=== PATIENT | female | born 1945 | race Caucasian/White ===

== ENCOUNTER 2017-02-27 11:31 | Emergency (ER) | payer MEDICARE ==
[~2017-02-27] VITALS: Ht 157.5 cm; Wt 72.6 kg
[~2017-02-27 11:31] MED LIST: DOES NOT KNOW MEDS
--- NOTE | 2017-02-27 12:58 | Diagnostic Imaging Report ---
PROCEDURE: X-RAY CHEST, TWO VIEWS COMPARISON: Report of a single chest x-ray performed 03/10/13. INDICATIONS: GENERALIZED WEAKNESS, CONFUSION FINDINGS: LUNGS: No mass or infiltrate. Pulmonary vascular markings are normal. PLEURA: No effusions or pneumothorax. HEART \T\ MEDIASTINUM: Mildly enlarged with calcification of aortic arch. No hilar lymphadenopathy. BONES \T\ SOFT TISSUES: Degenerative changes of the spine consistent with age. No focal osseous lesions. Surgical clips in the left breast are present with diminished left breast shadow suggestive of partial mastectomy. Several clips the left axilla are suggestive of lymph node dissection. CONCLUSION: No acute cardiopulmonary process. Dictated by: Celena Beck M.D. on 02/27/2017 at 13:06 Electronically approved by: Celena Beck M.D. on 02/27/2017 at 13:06
--- NOTE | 2017-02-27 13:51 | Diagnostic Imaging Report ---
EXAMINATION: Head CT HISTORY: Weakness, dementia COMPARISON: Accident on 02/28/2013 TECHNIQUE: Multidetector axial images were obtained without contrast from the foramen magnum to the vertex . The images were reconstructed using brain and bone algorithms. Thin section brain images were reformatted into coronal and sagittal planes. Intravenous contrast: None. Motion/streaking artifact limits the evaluation of the skull base and posterior cranial fossa. FINDINGS: Parenchyma: 1. And change myocardium at rest ischemic changes and tiny chronic lacunar infarct in the anterior limb of the left internal capsule. 2. No mass or hemorrhage. No CT evidence of acute territorial vascular insult. Extra-axial spaces:No abnormal density. No extra-axial fluid collections Brain volume: Normal for age. Ventricles: No hydrocephalus or displacement. Arteries: No density suggestive of thrombus. Dural sinuses: No abnormal density. Extra-axial spaces: No abnormal density. Foramen magnum: No mass, Chiari malformation, or basilar invagination. Sella: No obvious residual/recurrent mass. Paranasal/mastoid sinuses: Imaged portions unremarkable. Hyperpneumatization, sclerosis and opacification of the left greater than right mastoid air cells, likely from chronic inflammatory process, unchanged from prior study. Skull/Scalp: Left pterional craniotomy IMPRESSION: 1. No acute intracranial hemorrhage or cortical infarct. 2. Stable mild chronic microvascular changes. 3. Left pterional craniotomy, no discrete residual suprasellar lesion in this unenhanced study. Signed by: Dr. Alisha Woodard M.D. on 02/27/2017 1:47 PM
== END 2017-02-27 14:21 | disposition left against medical advice (07) ==
LOC: ER 11:31
DX: R41.82 Altered mental status, unspecified (principal); R41.0 Disorientation, unspecified
CPT/HCPCS: 70450; 71020

== ENCOUNTER 2017-02-28 18:28 | Emergency (ER) | payer MEDICARE | END 2017-02-28 21:13 | disposition short-term general hospital (02) | LOC: ER 18:28 | DX: R69 Illness, unspecified (principal) ==

== ENCOUNTER 2017-08-18 11:58 | Observation (INO) | payer MEDICARE ==
[~2017-08-18] VITALS: Ht 162.6 cm; Wt 75.5 kg
[2017-08-18] MEDS ORDERED: SODIUM CHLORIDE 0.9% 1000ML 1,000 ML IV STA (12:13)
[2017-08-18] MEDS ORDERED: ONDANSETRON HCL INJ 2 MG/ML VIAL IV STA ×2 (12:21→13:46)
[2017-08-18 13:07] LABS: BASOPHILS # (AUTO) 0.1 (0.0-0.1); BASOPHILS % 0.9 % (0.0-1.0); EOSINOPHILS # (AUTO) 0.1 (0.0-0.4); EOSINOPHILS % 0.8 % (0.0-6.0); HEMATOCRIT 42.4 % (34.2-44.1); HEMOGLOBIN 14.5 g/dL (12.0-16.0); LYMPHOCYTES # (AUTO) 1.3 (1.0-3.2); LYMPHOCYTES % 15.9 % (18.0-39.1); MEAN CORPUSCULAR HEMOGLOBIN 31.3 pg (28-32); MEAN CORPUSCULAR HGB CONC 34.2 g/dL (31-35); MEAN CORPUSCULAR VOLUME 91.4 fL (81-99); MONOCYTES # (AUTO) 0.5 (0.2-0.8); MONOCYTES % 6.4 % (4.4-11.3); NEUTROPHILS % 75.4 % (38.7-80.0); PLATELET COUNT 250 x10e3/uL (140-360); RED BLOOD COUNT 4.64 x10e6/uL (3.6-5.1); RED CELL DISTRIBUTION WIDTH 12.4 % (11.7-14.4)
[2017-08-18 13:19] LABS: ALANINE AMINOTRANSFERASE 12 IU/L (0-55); ALBUMIN 3.9 g/dL (3.5-5.0); ALBUMIN/GLOBULIN RATIO 1.2 (0.8-2.0); ALKALINE PHOSPHATASE 70 IU/L (40-150); AMYLASE 56 U/L (25-125); ANION GAP 16.5 mmol/L (8-16); BLOOD UREA NITROGEN 16 mg/dL (7-26); BUN/CREATININE RATIO 20 (6-25); CALCIUM 9.3 mg/dL (8.4-10.2); CARBON DIOXIDE 21 mmol/L (22-29); CHLORIDE 104 mmol/L (98-107); CREATINE KINASE 50 IU/L (29-168); CREATININE, SERUM 0.81 mg/dL (0.57-1.11); EST GLOMERULAR FILTRATION RATE > 60 ML/MIN (60-); GLUCOSE 209 mg/dL (74-118); LIPASE 32 U/L (8-78); MAGNESIUM 1.5 MG/DL (1.3-2.1); POTASSIUM 3.5 mmol/L (3.5-5.1); SODIUM 138 mmol/L (136-145)
[2017-08-18] MEDS ORDERED: SODIUM CHLORIDE 0.9% 50ML 50 ML ONE (14:40)
[2017-08-18] MEDS ORDERED: IOPAMIDOL 370 MG/ML 200 ML INFUS..BTL INJ ONE (14:41)
--- NOTE | 2017-08-18 15:02 | Diagnostic Imaging Report ---
History: Headache, history of Brain CA, Nausea and vomiting Comparison studies:Head CT on 02/27/2017 Technique: Axial images were obtained from the skull base to the vertex. Coronal and sagittal images reconstructed from the axial data. Intravenous contrast: None Findings: Scalp/skull: Left pterional craniotomy chronic postsurgical changes. Extra-axial spaces: No masses or fluid collections Brain sulci: Mildly prominent. Ventricles: Mild compensatory dilatation. No hydrocephalus. Parenchyma: Subtle hypodensities in the supratentorial white matter are small vessel ischemic changes. No masses, hemorrhage, acute or chronic cortical vascular insults. Sellar/suprasellar region: No abnormalities. Craniocervical junction: Patent foramen magnum. No Chiari one malformation. Incidental findings: Atherosclerotic calcifications in the carotid siphons . Impression: No acute intracranial abnormalities. No changes when compared to the head CT's on 07/10 and 03/10/2013. Persistent findings: Old left pterional craniotomy. No gross intra or suprasellar abnormalities. Mild generalized volume loss. Mild supratentorial white matter vessel ischemic changes. Signed by: Dr. Naresh Schumacher M.D. on 08/18/2017 3:16 PM
--- NOTE | 2017-08-18 15:12 | Diagnostic Imaging Report ---
PROCEDURE: CT ABDOMEN AND PELVIS WITH CONTRAST TECHNIQUE: The abdomen and pelvis were scanned utilizing a multidetector helical scanner from the diaphragm to the lesser trochanter after the IV administration of 100 cc of Isovue 370 and the oral administration of water. Coronal and sagittal multiplanar reformations were obtained. COMPARISON: None. INDICATIONS: NAUSEA, VOMITING FINDINGS: LOWER THORAX: Bilateral lower lobe atelectatic changes. Mild atherosclerotic disease of the aorta. HEPATOBILIARY: Mild diffuse hepatic steatosis. No focal lesions. Mild prominence of the central intrahepatic bile ducts and mild dilation of the common bile duct, which measures 9 mm at the jesenia hepatis and 5 mm at the pancreatic head. No radiopaque intraluminal filling defects. Gallbladder is moderately distended without stones or sludge, wall thickening, or pericholecystic fluid. SPLEEN: No splenomegaly. PANCREAS: No focal masses or ductal dilatation. 1.0 cm area of fluid containing structure between the distal second portion of the duodenum and the pancreatic head (series 2 image 30), consistent with a duodenal diverticulum. ADRENALS: No adrenal nodules. KIDNEYS/URETERS: No hydronephrosis, stones, or solid mass lesions. PELVIC ORGANS/BLADDER: Bladder is unremarkable. Moderate to large amount of fluid in the endometrial cavity and endocervical canal, with thinning of the myometrium. A 2.5 x 1.7 x 1.6 cm solid appearing filling defect is noted in the endometrial cavity at the fundus (series 2, image 70, and sagittal image 73). No adnexal masses. PERITONEUM / RETROPERITONEUM: No free air or fluid. LYMPH NODES: No lymphadenopathy. VESSELS: Celiac trunk, superior and inferior mesenteric, and bilateral renal arteries are patent. Portal, superior mesenteric, and splenic veins are patent. Atherosclerotic plaque at the origin of the SMA, without significant luminal reduction. Focal narrowing and hooked appearance of the proximal celiac trunk (sagittal image 71), with mild poststenotic dilation. GI TRACT: No bowel dilation or evidence of obstruction. No pericolonic inflammatory changes. Stomach is unremarkable. BONES AND SOFT TISSUES: No aggressive lytic lesions. Generalized osteopenia. Multilevel degenerative disc changes in the lumbosacral spine, worse At L5-S1 and L3-L4. Slightly mottled appearance of the vertebral bodies, particularly lower thoracic, without discrete focal lesions. Soft tissues are grossly unremarkable. IMPRESSION: 1. No acute abdominopelvic abnormalities. Essentially unremarkable appearance of the bowel. 2. Moderate to large amount of fluid in the endometrial cavity and endocervical canal. A 2.5 cm solid appearing filling defect is noted in the endometrial cavity at the fundus. This may represent a large polyp versus submucosal fibroid. Focal endometrial neoplasm is also a consideration. 3. Mild diffuse hepatic steatosis. No focal lesions. 4. Mild prominence of the central intrahepatic bile duct and mild dilation of the common bile duct. No radiopaque intraluminal filling defects. No CT evidence of cholelithiasis or cholecystitis. 5. Findings in the celiac trunk highly suggestive of median arcuate ligament compression. 6. Slightly mottled appearance of the vertebral bodies, particularly the lower thoracic spine may be secondary to generalized osteopenia. A bone scan may be obtained for further evaluation, if clinically indicated. David Bowie M.D. Dictated by: David Bowie M.D. on 08/18/2017 at 15:15 Electronically approved by: David Bowie M.D. on 08/18/2017 at 15:15
[2017-08-18 16:05] LABS: BILIRUBIN,URINE NEGATIVE (NEGATIVE); CLARITY,URINE SL CLOUDY (CLEAR); COLOR,URINE YELLOW (YELLOW); KETONES,URINE 1+ (NEGATIVE); LEUKOCYTE ESTERASE ,URINE TRACE (NEGATIVE); NITRITE,URINE NEGATIVE (NEGATIVE); PROTEIN,URINE DIPSTICK NEGATIVE (NEGATIVE); URINE UROBILINOGEN 0.2 mg/dL (0.2 - 1)
[2017-08-18] MEDS: SODIUM CHLORIDE 0.9% 1000ML 1,000 ML IV SCH ×2 (16:11→20:54)
[2017-08-18 16:14] LABS: BACTERIA,URINE MODERATE /HPF; EPITHELIAL CELLS,URINE FEW /LPF; MUCUS,URINE MODERATE (RARE); TRANSITIONAL EPI CELLS,URINE FEW
[2017-08-18] MEDS ORDERED: ONDANSETRON HCL INJ 2 MG/ML VIAL IV PRN (16:15)
[2017-08-18] MEDS ORDERED: DEXTROSE 50% SYRINGE 50 ML IV PRN (16:15)
[2017-08-18] MEDS: INSULIN REGULAR, HUMAN 100 UNIT/1 ML 3ML VIAL SQ SCH ×2 (16:55→20:54)
[2017-08-18 20:00] VITALS: BP 164/87
[2017-08-19] VITALS (7 sets, daily range): BP systolic 102–183; BP diastolic 60–84
[2017-08-19 06:36] LABS: BASOPHILS # (AUTO) 0.1 (0.0-0.1); BASOPHILS % 0.7 % (0.0-1.0); EOSINOPHILS # (AUTO) 0.1 (0.0-0.4); EOSINOPHILS % 1.7 % (0.0-6.0); HEMATOCRIT 41.1 % (34.2-44.1); HEMOGLOBIN 13.9 g/dL (12.0-16.0); LYMPHOCYTES # (AUTO) 1.5 (1.0-3.2); LYMPHOCYTES % 21.2 % (18.0-39.1); MEAN CORPUSCULAR HGB CONC 33.8 g/dL (31-35); MEAN CORPUSCULAR VOLUME 91.7 fL (81-99); MONOCYTES # (AUTO) 0.6 (0.2-0.8); NEUTROPHILS # (AUTO) 4.8 (2.1-6.9); PLATELET COUNT 244 x10e3/uL (140-360); RED BLOOD COUNT 4.48 x10e6/uL (3.6-5.1); RED CELL DISTRIBUTION WIDTH 12.4 % (11.7-14.4)
[2017-08-19 07:01] LABS: ALANINE AMINOTRANSFERASE 11 IU/L (0-55); ALBUMIN 3.6 g/dL (3.5-5.0); ALBUMIN/GLOBULIN RATIO 1.2 (0.8-2.0); ALKALINE PHOSPHATASE 62 IU/L (40-150); AMYLASE 53 U/L (25-125); ANION GAP 12.8 mmol/L (8-16); BILIRUBIN,DIRECT 0.5 mg/dL (0.0-0.5); BLOOD UREA NITROGEN 9 mg/dL (7-26); BUN/CREATININE RATIO 13 (6-25); CALCIUM 9.1 mg/dL (8.4-10.2); CARBON DIOXIDE 25 mmol/L (22-29); CHLORIDE 107 mmol/L (98-107); CREATININE, SERUM 0.72 mg/dL (0.57-1.11); EST GLOMERULAR FILTRATION RATE > 60 ML/MIN (60-); GLUCOSE 128 mg/dL (74-118); LIPASE 31 U/L (8-78); POTASSIUM 3.8 mmol/L (3.5-5.1); SODIUM 141 mmol/L (136-145)
[2017-08-19] MEDS: INSULIN REGULAR, HUMAN 100 UNIT/1 ML 3ML VIAL SQ SCH ×4 (07:30→21:00)
[2017-08-19] MEDS ORDERED: PROMETHAZINE 12.5MG/ NACL 0.9% 12.5 MG/50 ML BAG IV PRN (08:15)
[2017-08-19 08:51] LABS: CHOL/HDL RATIO 4.8 (3.0-3.6)
[2017-08-19] MEDS: CEFTRIAXONE SOD 1 GM VIAL IV SCH (09:00)
[2017-08-19] MEDS: LABETALOL HCL 100 MG TAB PO SCH (09:00)
[2017-08-19] MEDS ORDERED: LORAZEPAM INJ 2 MG/ML VIAL IV PRN ×2 (12:00→20:30)
[2017-08-19] MEDS ORDERED: LORAZEPAM INJ 2 MG/ML VIAL IV ONE (13:00)
--- NOTE | 2017-08-19 13:43 | History and Physical ---
PRIMARY CARE PHYSICIAN: Dr. Malcolm. CHIEF COMPLAINT: Intractable nausea and vomiting. HISTORY OF PRESENT ILLNESS: This is a 72-year-old woman with history of breast cancer, status post resection, and a brain lesion, unclear as to whether it was benign or active. Now, the patient over the past 2 weeks has been having abdominal discomfort, not clear of the exact location, but she has been having intermittent vomiting. Now yesterday with intractable nausea and vomiting, 8 episodes over a 2-hour period. Therefore, she came to the hospital. The patient has some cognitive deficits. All history has been obtained from her at bedside. No fever, chills, sweats. No other symptoms. Here she was found to have hyperbilirubinemia, urinary tract infection, and abnormal findings on CT scan images. She is admitted for further evaluation and management. PAST MEDICAL HISTORY 1. Brain tumor, benign, status post resection. 2. Left breast cancer, status post radiation therapy. 3. Cognitive deficits. 4. Hypertension. 5. Diabetes mellitus. PAST SURGICAL HISTORY 1. Left breast biopsy/lumpectomy. 2. Left craniotomy. ALLERGIES: PER ELECTRONIC MEDICAL RECORD. FAMILY/SOCIAL HISTORY: The patient is . She has 3 children. No alcohol, illicits or cigarettes. Lives with her . MEDICATIONS: Per electronic medical record. REVIEW OF SYSTEMS: Unreliable. PHYSICAL EXAMINATION VITAL SIGNS: Have been reviewed. GENERAL: A tired-appearing woman resting in bed. HEENT: Anicteric. No oral lesions. CARDIOVASCULAR: Normal S1 and S2. LUNGS: Moderate breath sounds. ABDOMEN: Nontender at this time. Nondistended. EXTREMITIES: No edema or calf tenderness. NEUROLOGIC: Alert, awake, but cognitive deficits, cognitive slowing. SKIN: Dry. PSYCHIATRIC: Flat affect. LABS: Reviewed. MEDICATIONS: Reviewed. ASSESSMENT: This is a 72-year-old woman. 1. Acute gastroenteritis. 2. Intractable nausea and vomiting. 3. Metabolic acidosis. 4. Overweight state. 5. Urinary tract infection. 6. Diabetes mellitus with hyperglycemia. 7. Hyperbilirubinemia. 8. Urinary tract infection. 9. A 2.5-cm, solid-appearing, filling defect in the endometrial cavity at the fundus. 10. Mottled appearance of the vertebral bodies. PLAN 1. Continue antibiotics for urinary tract infection. Follow up cultures. 2. Treat with antiemetic with Phenergan. 3. Use Pepcid. 4. Obtain hemoglobin A1c and lipid panel. 5. Sliding-scale insulin. 6. Obtain bone scan to further evaluate vertebral body mottled appearance. 7. GI consultation. 8. Obtain hepatitis panel. 9. Rehydrate the patient. 10. Use Lovenox and Pepcid. 11. Follow up closely and monitor. Physical therapy consultation. Job#: [id number]
[2017-08-19] MEDS: ENOXAPARIN SOD INJ 40 MG/0.4 ML SYR SC SCH (16:41)
[2017-08-19] MEDS: FAMOTIDINE 20 MG TAB PO SCH (16:41)
[2017-08-19] MEDS ORDERED: ACETAMINOPHEN 325 MG TAB PO PRN (20:30)
[2017-08-19] MEDS ORDERED: HYDRALAZINE HCL 20 MG/ML VIAL IV PRN (20:30)
--- NOTE | 2017-08-19 22:32 | Diagnostic Imaging Report ---
Bone Scan, delayed phase INDICATION: 72 F with dementia. Report of mottled appearing vertebral bodies. History of breast cancer. COMPARISON: None available. Do not know source of report referenced above. REPORT: Approximately 5 hours following intravenous administration of 25 mCi of Tc-99m MDP, delayed total body images in the anterior and posterior projections and selected spot images were obtained. Excessive patient motion decreases quality of study but does not render it uninterpretable. Increased tracer at the right proximal tibial metaphysis consistent with degenerative and/or traumatic change. Otherwise, distribution of tracer activity is unremarkable throughout the skeletal system. No abnormal accumulation of tracer is seen in the soft tissues or urinary tract. IMPRESSION: No scan evidence of metastatic or metabolic bone disease. The appearance of the spine is unremarkable. Signed by: Dr. Gail Marion M.D. on 08/19/2017 10:29 PM
[2017-08-20] MEDS: SODIUM CHLORIDE 0.9% 1000ML 1,000 ML IV SCH (00:59)
[2017-08-20 04:43] LABS: BASOPHILS # (AUTO) 0.1 (0.0-0.1); BASOPHILS % 0.8 % (0.0-1.0); EOSINOPHILS # (AUTO) 0.1 (0.0-0.4); EOSINOPHILS % 1.7 % (0.0-6.0); HEMATOCRIT 40.5 % (34.2-44.1); HEMOGLOBIN 13.5 g/dL (12.0-16.0); LYMPHOCYTES # (AUTO) 1.8 (1.0-3.2); LYMPHOCYTES % 27.5 % (18.0-39.1); MEAN CORPUSCULAR HGB CONC 33.3 g/dL (31-35); MEAN CORPUSCULAR VOLUME 92.9 fL (81-99); MONOCYTES # (AUTO) 0.5 (0.2-0.8); MONOCYTES % 7.6 % (4.4-11.3); NEUTROPHILS % 62.1 % (38.7-80.0); PLATELET COUNT 226 x10e3/uL (140-360); RED BLOOD COUNT 4.36 x10e6/uL (3.6-5.1); RED CELL DISTRIBUTION WIDTH 12.3 % (11.7-14.4)
[2017-08-20 05:10] LABS: ANION GAP 12.9 mmol/L (8-16); BLOOD UREA NITROGEN 10 mg/dL (7-26); BUN/CREATININE RATIO 14 (6-25); CALCIUM 8.9 mg/dL (8.4-10.2); CARBON DIOXIDE 24 mmol/L (22-29); CHLORIDE 111 mmol/L (98-107); CREATININE, SERUM 0.69 mg/dL (0.57-1.11); EST GLOMERULAR FILTRATION RATE > 60 ML/MIN (60-); GLUCOSE 105 mg/dL (74-118); MAGNESIUM 1.8 MG/DL (1.3-2.1); POTASSIUM 3.9 mmol/L (3.5-5.1); SODIUM 144 mmol/L (136-145)
[2017-08-20 05:25] VITALS: BP 174/82
[2017-08-20 05:32] LABS: THYROID STIMULATING HORMONE 0.715 uIU/mL (0.350-4.940)
[2017-08-20] MEDS: LABETALOL HCL 100 MG TAB PO SCH ×3 (06:15→21:38)
[2017-08-20 07:25] VITALS: BP 128/60
[2017-08-20] MEDS: INSULIN REGULAR, HUMAN 100 UNIT/1 ML 3ML VIAL SQ SCH ×4 (07:30→21:00)
[2017-08-20] MEDS: FAMOTIDINE 20 MG TAB PO SCH ×2 (07:30→16:42)
[2017-08-20] MEDS: CEFTRIAXONE SOD 1 GM VIAL IV SCH (08:25)
[2017-08-20 11:16] VITALS: BP 155/78
[2017-08-20 15:16] VITALS: BP 144/88
[2017-08-20] MEDS: ENOXAPARIN SOD INJ 40 MG/0.4 ML SYR SC SCH (16:42)
[2017-08-20 20:30] VITALS: BP 142/76
[2017-08-20 21:24] VITALS: BP 142/76
[2017-08-21 04:20] VITALS: BP 148/77
[2017-08-21 06:24] LABS: BASOPHILS # (AUTO) 0.1 (0.0-0.1); BASOPHILS % 1.1 % (0.0-1.0); EOSINOPHILS # (AUTO) 0.2 (0.0-0.4); EOSINOPHILS % 2.9 % (0.0-6.0); HEMOGLOBIN 12.5 g/dL (12.0-16.0); LYMPHOCYTES # (AUTO) 2.2 (1.0-3.2); LYMPHOCYTES % 35.4 % (18.0-39.1); MEAN CORPUSCULAR HEMOGLOBIN 31.3 pg (28-32); MEAN CORPUSCULAR HGB CONC 33.8 g/dL (31-35); MEAN CORPUSCULAR VOLUME 92.5 fL (81-99); MONOCYTES # (AUTO) 0.6 (0.2-0.8); MONOCYTES % 9.4 % (4.4-11.3); NEUTROPHILS # (AUTO) 3.2 (2.1-6.9); NEUTROPHILS % 50.9 % (38.7-80.0); PLATELET COUNT 232 x10e3/uL (140-360); RED CELL DISTRIBUTION WIDTH 12.5 % (11.7-14.4)
[2017-08-21 06:41] LABS: ANION GAP 10.4 mmol/L (8-16); BLOOD UREA NITROGEN 8 mg/dL (7-26); BUN/CREATININE RATIO 12 (6-25); CALCIUM 8.9 mg/dL (8.4-10.2); CARBON DIOXIDE 25 mmol/L (22-29); CHLORIDE 109 mmol/L (98-107); CREATININE, SERUM 0.66 mg/dL (0.57-1.11); EST GLOMERULAR FILTRATION RATE > 60 ML/MIN (60-); GLUCOSE 112 mg/dL (74-118); MAGNESIUM 1.9 MG/DL (1.3-2.1); POTASSIUM 3.4 mmol/L (3.5-5.1); SODIUM 141 mmol/L (136-145)
[2017-08-21] MEDS: INSULIN REGULAR, HUMAN 100 UNIT/1 ML 3ML VIAL SQ SCH ×2 (07:30→11:30)
[2017-08-21] MEDS ORDERED: POTASSIUM CHLORIDE 20 MEQ TAB CR PO STA (07:59)
[2017-08-21 08:00] VITALS: BP 177/87
[2017-08-21] MEDS ORDERED: LABETALOL HCL100 MG PO (08:06)
[2017-08-21] MEDS ORDERED: CEFTIN PO (08:06)
[2017-08-21] MEDS: FAMOTIDINE 20 MG TAB PO SCH (08:21)
[2017-08-21] MEDS: LABETALOL HCL 100 MG TAB PO SCH (08:22)
[2017-08-21] MEDS: CEFTRIAXONE SOD 1 GM VIAL IV SCH (08:22)
[2017-08-21 09:45] VITALS: BP 177/87
[2017-08-21] MEDS ORDERED: LISINOPRIL10 MG PO ×2 (10:01→12:31)
[2017-08-21] MEDS ORDERED: EXELON1 EAC1 TOP ×2 (10:01→12:30)
[2017-08-21] MEDS ORDERED: JANUMET 50-1,01 EACH PO ×2 (10:01→12:31)
--- NOTE | 2017-08-22 19:10 | Discharge Summary ---
ADMITTING DIAGNOSES 1. Acute gastroenteritis. 2. Intractable nausea and vomiting. 3. Metabolic acidosis. 4. Overweight. 5. Urinary tract infection. 6. Type-2 diabetes. 7. Hyperbilirubinemia. 8. A 2.5-cm, solid-appearing filling defect of the endometrial cavity at the fundus. 9. Mottled appearance of the vertebral bodies. DISCHARGE DIAGNOSES 1. Acute gastroenteritis. 2. Intractable nausea and vomiting. 3. Metabolic acidosis. 4. Overweight. 5. Urinary tract infection. 6. Type-2 diabetes. 7. Hyperbilirubinemia. 8. A 2.5-cm, solid-appearing filling defect of the endometrial cavity at the fundus. 9. Mottled appearance of the vertebral bodies. 10. Ruled out metabolic bone disease and metastatic bone disease. HISTORY: The patient has a history of benign brain tumor status post resection, left breast cancer status post radiation, hypertension, diabetes. Surgical history of left breast biopsy/lumpectomy and left craniotomy. HOSPITAL COURSE: This 72-year-old female has been having abdominal pain over the last 2 weeks but is unable to clarify exactly where the pain is. She also has intermittent vomiting according to the family. HPI is limited due to cognitive deficits. at bedside. Upon admission, the patient had a CT of the brain that showed no acute abnormalities. The patient had a CT of the abdomen that showed no acute abdominal or pelvic abnormalities. Moderate to large amount of fluid in the endometrial cavity. A 2.5-cm solid-appearing filling defect is noted in the endometrial cavity at the fundus. Mild diffuse hepatic steatosis. Dilation of the common bile duct. No evidence of cholelithiasis or cholecystitis. Slightly mottled appearance of the vertebral bodies, particularly lower thoracic spine. Due to the CT scan findings, the patient had a bone scan, which showed no evidence of metastatic or metabolic bone disease. The appearance of the spine is unremarkable. Upon admission, the patient no longer had any nausea, vomiting, or diarrhea in 2 days in the hospital. The urine culture also came back contaminated. The patient was receiving IV Rocephin in the hospital with no white count and no fever. She will be discharged with Ceftin 500 mg p.o. b.i.d. x5 days. Case management consulted for home physical therapy and memory care placement. at bedside. Both the patient and agree with discharge plan. Will follow up with primary care in 1 to 2 weeks. Dictated by: Vaishnavi Cortez, CAROLYNN SYBIL COTTON MD Job#: [id number]
== END 2017-08-21 12:55 | disposition home or self-care (01) ==
LOC: ER 11:58 → ERHOLD 16:29 → IMCU 18:18
PROVIDERS: ADMIT Internal Medicine; ATTEND Internal Medicine
DX: K52.9 Noninfective gastroenteritis and colitis, unspecified (principal); R11.2 Nausea with vomiting, unspecified; E87.2 Acidosis; E66.3 Overweight; N39.0 Urinary tract infection, site not specified; E11.65 Type 2 diabetes mellitus with hyperglycemia; R10.13 Epigastric pain; E80.6 Other disorders of bilirubin metabolism; F03.90 Unspecified dementia, unspecified severity, without behavioral disturbance, psychotic disturbance, mood disturbance, and anxiety; E11.9 Type 2 diabetes mellitus without complications; I10 Essential (primary) hypertension; N85.8 Other specified noninflammatory disorders of uterus; Z68.29 Body mass index [BMI] 29.0-29.9, adult
CPT/HCPCS: 36415; 70450; 74177; 78306; 80048; 80053; 80061; 80076; 81001; 82150; 82550; 82553; 82948; 83036; 83690; 83735; 84439; 84443; 84484; 85025; 87086; 99284; A9503; G0378; J0696; J1650; J2060; J2405; J7030; Q9967

== ENCOUNTER 2017-11-14 21:00 | Emergency (ER) | payer MEDICARE ==
[~2017-11-14] VITALS: Ht 162.6 cm; Wt 75.3 kg
[~2017-11-14 21:00] MED LIST changes: +CEFTIN PO; +EXELON1 EAC1 TOP; +JANUMET 50-1,01 EACH PO; +LABETALOL HCL100 MG PO; +LISINOPRIL10 MG PO
[2017-11-14] MEDS ORDERED: LISINOPRIL20 MG PO (21:15)
[2017-11-14 21:33] LABS: BASOPHILS # (AUTO) 0.1 (0.0-0.1); BASOPHILS % 0.9 % (0.0-1.0); EOSINOPHILS # (AUTO) 0.1 (0.0-0.4); HEMATOCRIT 44.9 % (34.2-44.1); HEMOGLOBIN 14.6 g/dL (12.0-16.0); LYMPHOCYTES # (AUTO) 2.3 (1.0-3.2); LYMPHOCYTES % 21.8 % (18.0-39.1); MEAN CORPUSCULAR HEMOGLOBIN 30.7 pg (28-32); MEAN CORPUSCULAR HGB CONC 32.5 g/dL (31-35); MEAN CORPUSCULAR VOLUME 94.3 fL (81-99); MONOCYTES # (AUTO) 0.7 (0.2-0.8); MONOCYTES % 7.1 % (4.4-11.3); NEUTROPHILS # (AUTO) 7.2 (2.1-6.9); NEUTROPHILS % 68.6 % (38.7-80.0); PLATELET COUNT 289 x10e3/uL (140-360); RED BLOOD COUNT 4.76 x10e6/uL (3.6-5.1); RED CELL DISTRIBUTION WIDTH 12.2 % (11.7-14.4)
[2017-11-14 21:43] LABS: CLARITY,URINE HAZY (CLEAR); COLOR,URINE RED (YELLOW)
[2017-11-14 21:44] LABS: LEUKOCYTE ESTERASE ,URINE TRACE (NEGATIVE); NITRITE,URINE POSITIVE (NEGATIVE)
[2017-11-14 21:45] LABS: KETONES,URINE TRACE (NEGATIVE); PROTEIN,URINE DIPSTICK 3+ (NEGATIVE)
[2017-11-14 21:46] LABS: BILIRUBIN,URINE NEGATIVE (NEGATIVE); URINE UROBILINOGEN 1 mg/dL (0.2 - 1)
[2017-11-14 21:58] LABS: ALBUMIN/GLOBULIN RATIO 1.3 (0.8-2.0); ANION GAP 15.7 mmol/L (8-16); CALCIUM 9.9 mg/dL (8.4-10.2); CREATININE, SERUM 0.92 mg/dL (0.57-1.11); POTASSIUM 3.7 mmol/L (3.5-5.1)
[2017-11-14 22:02] LABS: CLARITY,URINE CLEAR (CLEAR); COLOR,URINE YELLOW (YELLOW)
[2017-11-14 22:03] LABS: BILIRUBIN,URINE NEGATIVE (NEGATIVE); KETONES,URINE NEGATIVE (NEGATIVE); LEUKOCYTE ESTERASE ,URINE NEGATIVE (NEGATIVE); NITRITE,URINE NEGATIVE (NEGATIVE); PROTEIN,URINE DIPSTICK NEGATIVE (NEGATIVE); URINE UROBILINOGEN 0.2 mg/dL (0.2 - 1)
[2017-11-14 22:08] LABS: BACTERIA,URINE RARE /HPF; CALCIUM OXALATE CRYSTALS,UR RARE (FEW); EPITHELIAL CELLS,URINE RARE /LPF; RBC,URINE >50 /HPF (0-5)
[2017-11-14 22:12] LABS: BACTERIA,URINE MODERATE /HPF; EPITHELIAL CELLS,URINE FEW /LPF; MUCUS,URINE MANY (RARE); RBC,URINE 0-5 /HPF (0-5); WBC,URINE (MAN) 0-5 /HPF (0-5)
[2017-11-14 23:22] VITALS: BP 132/80
== END 2017-11-14 23:30 | disposition home or self-care (01) ==
LOC: ER 21:00
DX: N95.0 Postmenopausal bleeding (principal)
CPT/HCPCS: 36415; 80053; 81001; 85025; 87086; 99283